=== PATIENT | male | born 1950 | race African-American/Black ===

== ENCOUNTER → 2017-10-25 | Outpatient (CLI) | payer MEDICARE, MEDICAID ==
[~2017-10-25] MED LIST: DIATR MEGLU/DIATRIZOATE SOLN 120ML ONE; HYDR25TA PO; QUIN20TA30 PO; SIMV20TA6 PO
== END | disposition home or self-care (01) ==
LOC: RAD 09:12
PROVIDERS: ATTEND Surgery
DX: K57.30 Diverticulosis of large intestine without perforation or abscess without bleeding (principal); I12.9 Hypertensive chronic kidney disease with stage 1 through stage 4 chronic kidney disease, or unspecified chronic kidney disease; E11.22 Type 2 diabetes mellitus with diabetic chronic kidney disease; N18.9 Chronic kidney disease, unspecified
CPT/HCPCS: 74270; Q9963

== ENCOUNTER 2017-12-18 15:01 | Emergency (ER) | payer MEDICARE, MEDICAID ==
[~2017-12-18] VITALS: Ht 177.8 cm; Wt 78.0 kg
[~2017-12-18 15:01] MED LIST changes: -DIATR MEGLU/DIATRIZOATE SOLN 120ML ONE; +PANT40TA4 PO
[2017-12-18 15:26] VITALS: BP 139/85
[2017-12-18 17:11] LABS: HEMATOCRIT. 41.7 % (42.0-52.0); HEMOGLOBIN. 13.7 g/dL (14.0-18.0); MEAN CORPUSCULAR HEMOGLOBIN 27.1 pg (28.0-32.0); MEAN CORPUSCULAR VOLUME 82.3 fL (80.0-94.0); MEAN PLATELET VOLUME 8.4 fl (7.4-10.4); PLATELET 380 x1000/uL (130-400); RED BLOOD CELL COUNT 5.07 mill/uL (4.7-6.1); RED CELL DISTRIBUTION WIDTH 16.8 % (11.6-14.6)
[2017-12-18 17:13] LABS: CHLORIDE 100 mEq/L (98-107)
[2017-12-18 17:14] LABS: PROTHROMBIN TIME 10.2 sec (9.1-11.1)
[2017-12-18 17:18] LABS: CLARITY URINE CLEAR (CLEAR); COLOR URINE DARK YELLOW (YELLOW); KETONES URINE 1+ (NEGATIVE); LEUKOCYTE ESTERASE URINE NEGATIVE (NEGATIVE); NITRITE URINE NEGATIVE (NEGATIVE); OCCULT BLOOD URINE NEGATIVE (NEGATIVE); PH URINE 5.5 (4.5-8.0); PROTEIN URINE 1+ (NEGATIVE); SPECIFIC GRAVITY URINE 1.028 (1.005-1.030)
[2017-12-18 17:33] LABS: PLATELET ESTIMATE NORMAL
== END 2017-12-18 20:00 | disposition left against medical advice (07) ==
LOC: ER 15:01
DX: R10.33 Periumbilical pain (principal); R11.2 Nausea with vomiting, unspecified
CPT/HCPCS: 36415; 80053; 81003; 83690; 85025; 85610; 99284

== ENCOUNTER 2017-12-19 07:24 | Inpatient (IN) | payer MEDICARE, MEDICAID ==
[~2017-12-19] VITALS: Ht 180.3 cm; Wt 77.1 kg
[2017-12-19] MEDS ORDERED: ONDANSETRON HCL 4MG/2ML INJ IV STA (08:04)
[2017-12-19] MEDS ORDERED: SODIUM CHLORIDE 0.9% 1,000 ML IV ONE (08:04)
[2017-12-19 09:00] LABS: CLARITY URINE CLEAR (CLEAR); COLOR URINE DARK YELLOW (YELLOW); KETONES URINE TRACE (NEGATIVE); LEUKOCYTE ESTERASE URINE NEGATIVE (NEGATIVE); NITRITE URINE NEGATIVE (NEGATIVE); OCCULT BLOOD URINE TRACE (NEGATIVE); PROTEIN URINE 1+ (NEGATIVE); SPECIFIC GRAVITY URINE 1.026 (1.005-1.030)
[2017-12-19 09:04] LABS: CHLORIDE 97 mEq/L (98-107); HEMATOCRIT. 42.2 % (42.0-52.0); HEMOGLOBIN. 13.9 g/dL (14.0-18.0); MEAN CORPUSCULAR HEMOGLOBIN 27.1 pg (28.0-32.0); MEAN CORPUSCULAR VOLUME 82.5 fL (80.0-94.0); MEAN PLATELET VOLUME 8.5 fl (7.4-10.4); PLATELET 400 x1000/uL (130-400); RED BLOOD CELL COUNT 5.12 mill/uL (4.7-6.1); RED CELL DISTRIBUTION WIDTH 16.4 % (11.6-14.6)
[2017-12-19 09:08] LABS: INR 1.1; PROTHROMBIN TIME 10.6 sec (9.1-11.1)
[2017-12-19 09:29] LABS: PLATELET ESTIMATE NORMAL
[2017-12-19] MEDS ORDERED: MORPHINE SULFATE 4 MG/ML CPJ (NOT FOR IM USE) IV ONE (10:15)
[2017-12-19] MEDS ORDERED: IOHEXOL-300 100 ML BOTTLE ONE (10:24)
[2017-12-19] MEDS ORDERED: KETOROLAC 15MG/ML VIAL IV PRN (11:00)
[2017-12-19] MEDS ORDERED: HYDRALAZINE 20MG/ML VIAL IV PRN (11:00)
[2017-12-19] MEDS ORDERED: NITROGLYCERIN 0.4MG TABLET SL SL PRN (11:00)
[2017-12-19] MEDS ORDERED: LORAZEPAM 2MG/ML CPJ IV PRN (11:00)
[2017-12-19] MEDS ORDERED: ONDANSETRON HCL 4MG/2ML INJ IV PRN (11:00)
[2017-12-19] MEDS ORDERED: ACETAMINOPHEN 650MG SUPP PR PRN (11:00)
[2017-12-19] MEDS ORDERED: DIPHENHYDRAMINE 50MG/ML VIAL IV PRN (11:00)
[2017-12-19] MEDS ORDERED: IPRATROPIUM/ALBUTEROL 0.5-3(2.5)MG/3ML NEB INH PRN (11:00)
[2017-12-19 12:20] VITALS: BP 119/75
[2017-12-19 12:35] VITALS: BP 119/75
[2017-12-19] MEDS: ENOXAPARIN 40MG/0.4ML SYR SUBCUT SCH (15:51)
[2017-12-19] MEDS: DEXT 5%/0.45% NACL 1000ML 1,000 ML IV SCH (16:11)
[2017-12-19 20:00] VITALS: BP 144/81
[2017-12-19] MEDS: MORPHINE SULFATE 4 MG/ML CPJ (NOT FOR IM USE) IV PRN (20:48)
[2017-12-20] VITALS: BP 135/78
[2017-12-20] MEDS: MORPHINE SULFATE 4 MG/ML CPJ (NOT FOR IM USE) IV PRN ×2 (01:06→05:53)
[2017-12-20] MEDS: DEXT 5%/0.45% NACL 1000ML 1,000 ML IV SCH ×3 (01:06→12:57)
[2017-12-20 04:00] VITALS: BP 128/75
[2017-12-20 08:00] VITALS: BP 122/81
[2017-12-20] MEDS ORDERED: DIATR MEGLU/DIATRIZOATE SOLN 120ML ONE (08:16)
[2017-12-20 12:00] VITALS: BP 122/83
[2017-12-20] MEDS: ENOXAPARIN 40MG/0.4ML SYR SUBCUT SCH (12:55)
[2017-12-20] MEDS: PANTOPRAZOLE SODIUM 40 MG/VIAL IV SCH (12:55)
[2017-12-20 16:00] VITALS: BP 140/89
[2017-12-20 20:00] VITALS: BP 121/76
[2017-12-21] VITALS: BP 121/73
[2017-12-21 04:00] VITALS: BP 126/76
[2017-12-21] MEDS: DEXT 5%/0.45% NACL 1000ML 1,000 ML IV SCH (06:12)
[2017-12-21 08:00] VITALS: BP 120/75
[2017-12-21] MEDS: PANTOPRAZOLE SODIUM 40 MG/VIAL IV SCH (09:29)
[2017-12-21 12:00] VITALS: BP 115/72
[2017-12-21 16:00] VITALS: BP 147/74
[2017-12-21 20:00] VITALS: BP 134/83
[2017-12-22] VITALS: BP 119/73
[2017-12-22 04:00] VITALS: BP 121/73
[2017-12-22 08:00] VITALS: BP 112/69
[2017-12-22] MEDS ORDERED: FAMOTIDINE 20MG TABLET PO SCH (09:00)
[2017-12-22 12:00] VITALS: BP 112/73
[2017-12-22] MEDS: DEXT 5%/0.45% NACL 1000ML 1,000 ML IV SCH (12:00)
[2017-12-22 12:34] VITALS: BP 112/73
[2017-12-22] MEDS: ENOXAPARIN 40MG/0.4ML SYR SUBCUT SCH (13:00)
== END 2017-12-22 13:20 | disposition home or self-care (01) | DRG 388 ==
LOC: ER 07:24 → 6EST 10:22 → ENRESERV 10:43
PROVIDERS: ADMIT Internal Medicine; ATTEND Internal Medicine
PROC: 0D9670Z Drainage of Stomach with Drainage Device, Via Natural or Artificial Opening (ICD-10-PCS; principal; 2017-12-19)
DX: K56.609 Unspecified intestinal obstruction, unspecified as to partial versus complete obstruction (principal); N17.0 Acute kidney failure with tubular necrosis; D63.8 Anemia in other chronic diseases classified elsewhere; I10 Essential (primary) hypertension; K21.9 Gastro-esophageal reflux disease without esophagitis; E78.5 Hyperlipidemia, unspecified; E78.00 Pure hypercholesterolemia, unspecified; Z93.3 Colostomy status; Z85.048 Personal history of other malignant neoplasm of rectum, rectosigmoid junction, and anus; Z79.899 Other long term (current) drug therapy; Z92.21 Personal history of antineoplastic chemotherapy
CPT/HCPCS: 36415; 71045; 74177; 74250; 80053; 81003; 83690; 85025; 85610; 93970; 96361; 96374; 96375; 97162; 99285; C9113; J1650; J2270; J2405; J7030; Q9963; Q9967

== ENCOUNTER 2018-01-16 06:08 | Inpatient (IN) | payer MEDICARE, MEDICAID ==
[~2018-01-16] VITALS: Ht 167.6 cm; Wt 73.5 kg
[2018-01-16] MEDS ORDERED: SODIUM CHLORIDE 0.9% 1,000 ML IV ONE (07:09)
[2018-01-16] MEDS ORDERED: MORPHINE SULFATE 4 MG/ML CPJ (NOT FOR IM USE) IV STA (07:09)
[2018-01-16] MEDS ORDERED: ONDANSETRON HCL 4MG/2ML INJ IV STA (07:09)
[2018-01-16 08:25] LABS: HEMATOCRIT. 35.2 % (42.0-52.0); HEMOGLOBIN. 11.7 g/dL (14.0-18.0); MEAN CORPUSCULAR VOLUME 81.4 fL (80.0-94.0); MEAN PLATELET VOLUME 8.2 fl (7.4-10.4); PLATELET 374 x1000/uL (130-400); RED BLOOD CELL COUNT 4.33 mill/uL (4.7-6.1); RED CELL DISTRIBUTION WIDTH 16.4 % (11.6-14.6)
[2018-01-16 08:33] LABS: CHLORIDE 96 mEq/L (98-107)
[2018-01-16] MEDS ORDERED: POTASSIUM CHLORIDE 20MEQ TABLET SR PO ONE (08:45)
[2018-01-16] MEDS ORDERED: KCL 20MEQ/100ML PREMIX 100 ML IV ONE (09:00)
[2018-01-16 09:44] LABS: PLATELET ESTIMATE NORMAL
[2018-01-16] MEDS ORDERED: PIPERACILLIN/TAZOBACTAM 3.375GM/50ML PREMIX IV ONE (11:45)
[2018-01-16] MEDS ORDERED: PIPERACILLIN/TAZ 3.375G PREMIX 50 ML IV ONE (12:00)
[2018-01-16] MEDS ORDERED: ONDANSETRON HCL 4MG/2ML INJ IV ONE (12:45)
[2018-01-16] MEDS ORDERED: MORPHINE SULFATE 4 MG/ML CPJ (NOT FOR IM USE) IV ONE (12:45)
[2018-01-16] MEDS ORDERED: IPRATROPIUM/ALBUTEROL 0.5-3(2.5)MG/3ML NEB INH PRN (13:15)
[2018-01-16] MEDS ORDERED: DIPHENHYDRAMINE 50MG/ML VIAL IV PRN (13:15)
[2018-01-16] MEDS ORDERED: ACETAMINOPHEN 650MG SUPP PR PRN (13:15)
[2018-01-16] MEDS ORDERED: NITROGLYCERIN 0.4MG TABLET SL SL PRN (13:15)
[2018-01-16] MEDS ORDERED: LORAZEPAM 2MG/ML CPJ IV PRN (13:15)
[2018-01-16 17:55] VITALS: BP 120/67
[2018-01-16] MEDS ORDERED: NA PHOS,M-B/NA PHOS,DI-BA ENEMA 118ML PR PRN (19:00)
[2018-01-16 20:00] VITALS: BP 136/83
[2018-01-16 20:16] VITALS: BP 136/83
[2018-01-16] MEDS ORDERED: CEFTRIAXONE 1 G PREMIX 50 ML IV SCH (20:30)
[2018-01-16] MEDS: DEXT 5%/LACTATED RINGERS 1,000 ML IV SCH ×2 (21:09→22:24)
[2018-01-16] MEDS: ENOXAPARIN 40MG/0.4ML SYR SUBCUT SCH (21:14)
[2018-01-16] MEDS ORDERED: AZITHROMYCIN 500 MG in DEXT 5% WATER 250 ML IV SCH (21:30)
[2018-01-16] MEDS ORDERED: KCL 20MEQ/100ML PREMIX 100 ML IV NR (22:00)
[2018-01-16] MEDS: MORPHINE SULFATE 4 MG/ML CPJ (NOT FOR IM USE) IV PRN (22:13)
[2018-01-16] MEDS: ONDANSETRON HCL 4MG/2ML INJ IV PRN (22:14)
[2018-01-17] VITALS: BP 129/81
[2018-01-17 04:00] VITALS: BP 121/73
[2018-01-17 05:28] LABS: *AMPHETAMINES SCREEN URINE NEGATIVE (NEGATIVE); *BARBITURATES SCREEN URINE NEGATIVE (NEGATIVE)
[2018-01-17 05:29] LABS: *BENZODIAZEPINES SCREEN URINE NEGATIVE (NEGATIVE); *COCAINE SCREEN URINE NEGATIVE (NEGATIVE); CANNABINOID URINE SCREEN NEGATIVE (NEGATIVE); METHADONE URINE SCREEN NEGATIVE (NEGATIVE); OPIATES URINE SCREEN PRESUMTIVE POSITIVE (NEGATIVE); PHENCYCLIDINE URINE SCREEN NEGATIVE (NEGATIVE)
[2018-01-17 08:00] VITALS: BP 109/73
[2018-01-17 08:20] LABS: HEMATOCRIT. 30.7 % (42.0-52.0); HEMOGLOBIN. 10.1 g/dL (14.0-18.0); MEAN CORPUSCULAR HEMOGLOBIN 26.8 pg (28.0-32.0); MEAN CORPUSCULAR VOLUME 81.7 fL (80.0-94.0); MEAN PLATELET VOLUME 7.9 fl (7.4-10.4); PLATELET 301 x1000/uL (130-400); RED BLOOD CELL COUNT 3.76 mill/uL (4.7-6.1); RED CELL DISTRIBUTION WIDTH 16.4 % (11.6-14.6)
[2018-01-17] MEDS: DEXT 5%/LACTATED RINGERS 1,000 ML IV SCH ×2 (08:20→21:40)
[2018-01-17] MEDS: PANTOPRAZOLE SODIUM 40 MG/VIAL IV SCH (09:00)
[2018-01-17 10:08] LABS: CHLORIDE 104 mEq/L (98-107)
[2018-01-17 10:11] LABS: COLOR URINE YELLOW (YELLOW); KETONES URINE TRACE (NEGATIVE); LEUKOCYTE ESTERASE URINE NEGATIVE (NEGATIVE); NITRITE URINE NEGATIVE (NEGATIVE); OCCULT BLOOD URINE NEGATIVE (NEGATIVE); PH URINE 5.5 (4.5-8.0); PROTEIN URINE NEGATIVE (NEGATIVE); SPECIFIC GRAVITY URINE 1.018 (1.005-1.030); UROBILINOGEN URINE 0.2 E.U./dL (0.2-1.0)
[2018-01-17 10:17] LABS: CLARITY URINE TURBID (CLEAR)
[2018-01-17 10:59] LABS: PLATELET ESTIMATE NORMAL
[2018-01-17] MEDS: MORPHINE SULFATE 4 MG/ML CPJ (NOT FOR IM USE) IV PRN ×3 (11:09→21:00)
[2018-01-17] MEDS ORDERED: POTASSIUM CHLORIDE 20MEQ TABLET SR PO ONE (11:30)
[2018-01-17] MEDS ORDERED: DIATR MEGLU/DIATRIZOATE SOLN 120ML ONE (11:44)
[2018-01-17] MEDS ORDERED: POTASSIUM CHLORIDE INJ 40 MEQ in DEXT 5% WATER 500 ML IV NR (13:00)
[2018-01-17 16:00] VITALS: BP 128/83
[2018-01-17 20:00] VITALS: BP 126/81
[2018-01-17] MEDS ORDERED: CEFTRIAXONE 1 G PREMIX 50 ML IV SCH (20:00)
[2018-01-17] MEDS: ONDANSETRON HCL 4MG/2ML INJ IV PRN (20:59)
[2018-01-17] MEDS ORDERED: AZITHROMYCIN 500 MG in DEXT 5% WATER 250 ML IV SCH (21:00)
[2018-01-17] MEDS: ENOXAPARIN 40MG/0.4ML SYR SUBCUT SCH (21:02)
[2018-01-18] VITALS: BP 124/79
[2018-01-18] MEDS: MORPHINE SULFATE 4 MG/ML CPJ (NOT FOR IM USE) IV PRN (01:17)
[2018-01-18 04:00] VITALS: BP 125/75
[2018-01-18 08:00] VITALS: BP 122/74
[2018-01-18] MEDS: PANTOPRAZOLE SODIUM 40 MG/VIAL IV SCH (08:10)
[2018-01-18] MEDS: DEXT 5%/LACTATED RINGERS 1,000 ML IV SCH (10:27)
[2018-01-18 11:45] VITALS: BP 104/73
== END 2018-01-18 12:24 | disposition home or self-care (01) | DRG 389 ==
LOC: ER 07:23 → EDBEDREQ 12:43 → CANRESERV 12:58 → ENRESERV 12:58 → 6EST 17:55
PROVIDERS: ADMIT Internal Medicine; ATTEND Internal Medicine
DX: K56.699 Other intestinal obstruction unspecified as to partial versus complete obstruction (principal); E44.1 Mild protein-calorie malnutrition; N17.9 Acute kidney failure, unspecified; D63.8 Anemia in other chronic diseases classified elsewhere; E78.5 Hyperlipidemia, unspecified; E87.6 Hypokalemia; J44.9 Chronic obstructive pulmonary disease, unspecified; K76.89 Other specified diseases of liver; I10 Essential (primary) hypertension; K21.9 Gastro-esophageal reflux disease without esophagitis; E78.00 Pure hypercholesterolemia, unspecified; E87.5 Hyperkalemia; N40.0 Benign prostatic hyperplasia without lower urinary tract symptoms; Z90.49 Acquired absence of other specified parts of digestive tract; Z85.048 Personal history of other malignant neoplasm of rectum, rectosigmoid junction, and anus; Z93.3 Colostomy status; Z68.26 Body mass index [BMI] 26.0-26.9, adult; Z92.21 Personal history of antineoplastic chemotherapy
CPT/HCPCS: 36415; 71045; 74018; 74176; 74250; 80061; 80305; 83036; 93970; 96365; 96367; 96375; 99285; C9113; J0456; J0696; J1650; J2060; J2270; J2405; J2543; J3480; J7030; J7060; Q9963

== ENCOUNTER 2018-02-23 07:11 | Inpatient (IN) | payer MEDICARE, MEDICAID ==
[~2018-02-23] VITALS: Ht 177.8 cm; Wt 78.5 kg
[2018-02-23] MEDS ORDERED: MORPHINE SULFATE 4 MG/ML CPJ (NOT FOR IM USE) IV STA (08:16)
[2018-02-23 09:22] LABS: BASOPHILS % 0.6 % (0.0-2.0); EOSINOPHILS % 1.9 % (0.0-5.0); HEMATOCRIT. 37.4 % (42.0-52.0); HEMOGLOBIN. 12.3 g/dL (14.0-18.0); LYMPHOCYTES % 13.3 % (20.0-50.0); MEAN CORPUSCULAR HEMOGLOBIN 27.4 pg (28.0-32.0); MEAN CORPUSCULAR VOLUME 83.2 fL (80.0-94.0); MEAN PLATELET VOLUME 7.5 fl (7.4-10.4); MONOCYTES % 6.5 % (2.0-8.0); NEUTROPHILS % 77.7 % (40.0-76.0); PLATELET 391 x1000/uL (130-400); RED CELL DISTRIBUTION WIDTH 18.7 % (11.6-14.6)
[2018-02-23 09:37] LABS: CHLORIDE 103 mEq/L (98-107)
[2018-02-23 09:44] LABS: PROTHROMBIN TIME 10.1 sec (9.1-11.1)
[2018-02-23] MEDS ORDERED: MORPHINE SULFATE 4 MG/ML CPJ (NOT FOR IM USE) IV ONE (10:15)
[2018-02-23 10:53] LABS: CLARITY URINE CLEAR (CLEAR); COLOR URINE YELLOW (YELLOW); KETONES URINE NEGATIVE (NEGATIVE); LEUKOCYTE ESTERASE URINE NEGATIVE (NEGATIVE); NITRITE URINE NEGATIVE (NEGATIVE); OCCULT BLOOD URINE NEGATIVE (NEGATIVE); PH URINE 6.5 (4.5-8.0); PROTEIN URINE NEGATIVE (NEGATIVE); SPECIFIC GRAVITY URINE 1.015 (1.005-1.030); UROBILINOGEN URINE 0.2 E.U./dL (0.2-1.0)
[2018-02-23] MEDS ORDERED: IPRATROPIUM/ALBUTEROL 0.5-3(2.5)MG/3ML NEB INH PRN (12:15)
[2018-02-23] MEDS ORDERED: NITROGLYCERIN 0.4MG TABLET SL SL PRN (12:15)
[2018-02-23] MEDS ORDERED: ACETAMINOPHEN 650MG SUPP PR PRN (12:15)
[2018-02-23] MEDS ORDERED: DIPHENHYDRAMINE 50MG/ML VIAL IV PRN (12:15)
[2018-02-23 12:30] VITALS: BP 144/83
[2018-02-23] MEDS: ENOXAPARIN 40MG/0.4ML SYR SUBCUT SCH (14:48)
[2018-02-23] MEDS: DEXT 5%/LACTATED RINGERS 1,000 ML IV SCH (14:48)
[2018-02-23] MEDS: MORPHINE SULFATE 4 MG/ML CPJ (NOT FOR IM USE) IV PRN ×2 (14:49→18:44)
[2018-02-23 16:00] VITALS: BP 148/88
[2018-02-23] MEDS: ONDANSETRON HCL 4MG/2ML INJ IV PRN (17:22)
[2018-02-23] MEDS ORDERED: LOSA50TA20 MT (17:34)
[2018-02-23] MEDS ORDERED: HYDRALAZINE 10 MG in SODIUM CHLORIDE 0.9% 49.5 ML IV PRN (18:30)
[2018-02-23] MEDS ORDERED: HYDRALAZINE 20MG/ML VIAL IV PRN (18:30)
[2018-02-24] MEDS: MORPHINE SULFATE 4 MG/ML CPJ (NOT FOR IM USE) IV PRN ×5 (03:05→22:21)
[2018-02-24 08:00] VITALS: BP 144/98
[2018-02-24] MEDS: PANTOPRAZOLE SODIUM 40 MG/VIAL IV SCH (09:06)
[2018-02-24] MEDS: DEXT 5%/LACTATED RINGERS 1,000 ML IV SCH ×2 (09:10→14:49)
[2018-02-24] MEDS: ENOXAPARIN 40MG/0.4ML SYR SUBCUT SCH (14:48)
[2018-02-24 16:00] VITALS: BP 142/93
[2018-02-24] MEDS: ONDANSETRON HCL 4MG/2ML INJ IV PRN (19:50)
[2018-02-24 20:00] VITALS: BP 145/94
[2018-02-24 22:15] VITALS: BP 142/96
[2018-02-25 02:00] VITALS: BP 147/91
[2018-02-25] MEDS: MORPHINE SULFATE 4 MG/ML CPJ (NOT FOR IM USE) IV PRN ×5 (02:29→21:03)
[2018-02-25] MEDS: DEXT 5%/LACTATED RINGERS 1,000 ML IV SCH (02:32)
[2018-02-25 04:00] VITALS: BP 148/93
[2018-02-25 08:00] VITALS: BP 146/95
[2018-02-25] MEDS: PANTOPRAZOLE SODIUM 40 MG/VIAL IV SCH (08:09)
[2018-02-25 12:08] VITALS: BP 143/84
[2018-02-25] MEDS ORDERED: DIATR MEGLU/DIATRIZOATE SOLN 120ML ONE (13:43)
[2018-02-25] MEDS: ENOXAPARIN 40MG/0.4ML SYR SUBCUT SCH (15:13)
[2018-02-25 16:14] VITALS: BP 140/85
[2018-02-25 20:00] VITALS: BP 142/89
[2018-02-26] VITALS: BP 146/85
[2018-02-26 04:00] VITALS: BP 144/87
[2018-02-26] MEDS: MORPHINE SULFATE 4 MG/ML CPJ (NOT FOR IM USE) IV PRN ×3 (04:18→21:23)
[2018-02-26] MEDS: DEXT 5%/LACTATED RINGERS 1,000 ML IV SCH (04:19)
[2018-02-26 08:00] VITALS: BP 142/85
[2018-02-26] MEDS ORDERED: DIATR MEGLU/DIATRIZOATE SOLN 120ML ONE (09:30)
[2018-02-26] MEDS: FAMOTIDINE 20MG/2ML VIAL IV SCH ×2 (11:26→20:57)
[2018-02-26 12:00] VITALS: BP 157/95
[2018-02-26] MEDS: ENOXAPARIN 40MG/0.4ML SYR SUBCUT SCH (13:43)
[2018-02-26 16:00] VITALS: BP 142/87
[2018-02-26 20:00] VITALS: BP 140/79
[2018-02-27] MEDS: DEXT 5%/LACTATED RINGERS 1,000 ML IV SCH ×2 (00:08→14:22)
[2018-02-27 01:53] VITALS: BP 139/78
[2018-02-27 04:00] VITALS: BP 124/70
[2018-02-27 08:00] VITALS: BP 122/65
[2018-02-27] MEDS: FAMOTIDINE 20MG/2ML VIAL IV SCH ×2 (08:47→20:21)
[2018-02-27 12:00] VITALS: BP 129/68
[2018-02-27] MEDS: ENOXAPARIN 40MG/0.4ML SYR SUBCUT SCH (14:22)
[2018-02-27] MEDS: MORPHINE SULFATE 4 MG/ML CPJ (NOT FOR IM USE) IV PRN ×2 (14:23→20:40)
[2018-02-27 16:30] VITALS: BP 131/78
[2018-02-27 20:00] VITALS: BP 120/68
[2018-02-28] VITALS: BP 115/65
[2018-02-28 04:00] VITALS: BP 151/82
[2018-02-28] MEDS: DEXT 5%/LACTATED RINGERS 1,000 ML IV SCH (05:51)
[2018-02-28 08:00] VITALS: BP 139/80
[2018-02-28] MEDS: FAMOTIDINE 20MG/2ML VIAL IV SCH (08:19)
[2018-02-28] MEDS: MORPHINE SULFATE 4 MG/ML CPJ (NOT FOR IM USE) IV PRN (08:29)
[2018-02-28 12:00] VITALS: BP 139/81
[2018-02-28] MEDS: ENOXAPARIN 40MG/0.4ML SYR SUBCUT SCH (14:36)
[2018-02-28 14:52] VITALS: BP 136/76
[2018-02-28 16:00] VITALS: BP 132/75
== END 2018-02-28 19:45 | disposition home health service (06) | DRG 389 ==
LOC: ER 07:11 → 8WST 10:31 → EDBEDREQ 10:31 → ENRESERV 11:09
PROVIDERS: ADMIT Internal Medicine; ATTEND Internal Medicine
PROC: 0D9670Z Drainage of Stomach with Drainage Device, Via Natural or Artificial Opening (ICD-10-PCS; principal; 2018-02-23)
DX: K56.600 Partial intestinal obstruction, unspecified as to cause (principal); E44.1 Mild protein-calorie malnutrition; I10 Essential (primary) hypertension; E78.00 Pure hypercholesterolemia, unspecified; D63.8 Anemia in other chronic diseases classified elsewhere; Z90.49 Acquired absence of other specified parts of digestive tract; Z93.3 Colostomy status; Z85.048 Personal history of other malignant neoplasm of rectum, rectosigmoid junction, and anus; Z68.24 Body mass index [BMI] 24.0-24.9, adult
CPT/HCPCS: 36415; 71045; 74018; 74176; 74250; 93005; 96374; 96375; 97162; 97165; 99285; C1893; C9113; J1650; J2270; J2405; J3490; J7030; Q9963

== ENCOUNTER 2018-05-02 05:37 | Inpatient (IN) | payer MEDICARE, MEDICAID ==
[~2018-05-02] VITALS: Ht 180.3 cm; Wt 73.3 kg
[2018-05-02] VITALS (35 sets, daily range): BP systolic 0–187; BP diastolic 0–131
[~2018-05-02 05:37] MED LIST changes: +LOSA50TA20 MT; -QUIN20TA30 PO; -SIMV20TA6 PO
[2018-05-02] MEDS ORDERED: ONDANSETRON HCL 4MG/2ML INJ IV PRN (06:00)
[2018-05-02] MEDS ORDERED: CHOL200059 PO (06:55)
[2018-05-02] MEDS ORDERED: HYDR-4009 PO (06:55)
[2018-05-02] MEDS ORDERED: BACITRACIN 50,000 UNITS/VIAL ONE ×4 (07:00→09:51)
[2018-05-02] MEDS ORDERED: NORMAL SALINE 0.9% 10 ML SYR ONE ×3 (07:00→09:19)
[2018-05-02] MEDS ORDERED: BUPIVACAINE HCL 0.5% (5MG/ML) 50ML ONE (07:01)
[2018-05-02] MEDS: LACTATED RINGERS 1,000 ML IV SCH (07:06)
[2018-05-02] MEDS ORDERED: DOBUTAMINE 250MG PREMIX 0 ML IV ONE (10:53)
[2018-05-02] MEDS ORDERED: DOPAMINE 400MG/250ML PREMIX 250 ML IV ONE (10:55)
[2018-05-02] MEDS ORDERED: MORPHINE SULFATE 4 MG/ML CPJ (NOT FOR IM USE) IV PRN (11:00)
[2018-05-02 11:05] LABS: HEMATOCRIT 34.7 % (42.0-52.0); HEMOGLOBIN 11.5 g/dL (14.0-18.0); MEAN CORPUSCULAR HEMOGLOBIN 28.2 pg (28.0-32.0); MEAN CORPUSCULAR VOLUME 85.5 fL (80.0-94.0); PLATELET 244 x1000/uL (130-400); RED BLOOD CELL COUNT 4.06 mill/uL (4.7-6.1); RED CELL DISTRIBUTION WIDTH 17.5 % (11.6-14.6)
[2018-05-02 11:06] LABS: INR 1.5; PARTIAL THROMBOPLASTIN TIME 26.8 sec (23.4-31.0); PROTHROMBIN TIME 14.6 sec (9.1-11.1)
[2018-05-02] MEDS ORDERED: NOREPINEPHRINE 4 MG in DEXTROSE 5% WATER 250 ML IV PRN (11:30)
[2018-05-02 12:29] LABS: CHLORIDE 110 mEq/L (98-107)
[2018-05-02 12:30] LABS: BG BASE EXCESS -5.7 mmol/L (-2.0-2.0); BG CARBOXYHEMOGLOBIN 0.9 % (0.5-1.5); BG DEOXYHEMOGLOBIN 0.3 % (0.0-5.0); BG FRACTION INSPIRED OXYGEN 100; BG HCO3 ACT 17.1 mmol/L (22.0-26.0); BG METHEMOGLOBIN 0.3 % (0.0-1.5); BG OXYGEN SATURATION 99.7 % (92.0-98.5); BG OXYHEMOGLOBIN 98.5 % (94.0-97.0); BG PCO2 26.7 mmHg (35.0-45.0); BG PH 7.424 (7.350-7.450); BG PO2 593.4 mmHg (75.0-100.0); BG SAMPLE SITE A-LINE; BG TIDAL VOLUME(mL) 600 mL; BG TOTAL HEMOGLOBIN 13.7 g/dL (12.0-18.0); BG VENT MODE VENT - A/C; BG VENT RATE 12 set
[2018-05-02] MEDS ORDERED: DEXT 5%/0.9% NACL KCL 20MEQ/L 1,000 ML IV SCH (13:30)
[2018-05-02] MEDS ORDERED: FENTANYL CITRATE/PF 50MCG/ML 2ML VIAL IV NR (13:45)
[2018-05-02] MEDS ORDERED: FENTANYL CITRATE/PF 50MCG/ML 2ML VIAL IV PRN (13:45)
[2018-05-02] MEDS ORDERED: MIDAZOLAM HCL 2 MG/2 ML VIAL IV NR (13:45)
[2018-05-02] MEDS ORDERED: LACTATED RINGERS 1,000 ML IV ONE (14:30)
[2018-05-02 15:20] LABS: CHLORIDE 107 mEq/L (98-107)
[2018-05-02 15:23] LABS: BG BASE EXCESS -8.2 mmol/L (-2.0-2.0); BG CARBOXYHEMOGLOBIN 0.5 % (0.5-1.5); BG DEOXYHEMOGLOBIN 0.8 % (0.0-5.0); BG FRACTION INSPIRED OXYGEN 50; BG HCO3 ACT 16.7 mmol/L (22.0-26.0); BG METHEMOGLOBIN 0.3 % (0.0-1.5); BG OXYGEN SATURATION 99.2 % (92.0-98.5); BG OXYHEMOGLOBIN 98.4 % (94.0-97.0); BG PCO2 33.2 mmHg (35.0-45.0); BG PO2 310.1 mmHg (75.0-100.0); BG SAMPLE SITE A-LINE; BG TIDAL VOLUME(mL) 600 mL; BG TOTAL HEMOGLOBIN 15.1 g/dL (12.0-18.0); BG VENT MODE VENT - A/C; BG VENT RATE 12 set
[2018-05-02] MEDS ORDERED: SODIUM CHLORIDE 0.9% 500 ML IV ONE (19:00)
[2018-05-02] MEDS ORDERED: DEXT 5%/0.45% NACL KCL 20MEQ/L 1,000 ML IV SCH (19:00)
[2018-05-02] MEDS ORDERED: POTASSIUM CHLORIDE INJ 40 MEQ in DEXT 5% WATER 250 ML IV NR (19:00)
[2018-05-02] MEDS ORDERED: METOPROLOL TARTRATE 5MG/5ML VIAL IV SCH (19:15)
[2018-05-02] MEDS ORDERED: PROPOFOL 10MG/ML 100ML 100 ML IV PRN (19:30)
[2018-05-02] MEDS ORDERED: ACETAMINOPHEN 650MG SUPP PR PRN (20:00)
[2018-05-02] MEDS ORDERED: ALBUMIN HUMAN 25GM/500ML (5%) IV SCH (20:00)
[2018-05-02 20:39] LABS: BG CARBOXYHEMOGLOBIN 0.5 % (0.5-1.5); BG DEOXYHEMOGLOBIN 73.5 % (0.0-5.0); BG FRACTION INSPIRED OXYGEN 50; BG HCO3 ACT 13.6 mmol/L (22.0-26.0); BG METHEMOGLOBIN 0.9 % (0.0-1.5); BG OXYGEN SATURATION 25.5 % (92.0-98.5); BG OXYHEMOGLOBIN 25.1 % (94.0-97.0); BG PCO2 56.8 mmHg (35.0-45.0); BG PEEP (cmH2O) 0 cmH2O; BG PH 6.996 (7.350-7.450); BG PO2 < 30.3 mmHg (75.0-100.0); BG SAMPLE SITE LEFT FEMORAL; BG TIDAL VOLUME(mL) 550 mL; BG TOTAL HEMOGLOBIN 13.9 g/dL (12.0-18.0); BG VENT MODE VENT - A/C; BG VENT RATE 12 set
[2018-05-02 20:43] LABS: CHLORIDE 108 mEq/L (98-107)
[2018-05-02] MEDS ORDERED: ALBUMIN HUMAN 25GM/500ML (5%) IV NR (20:45)
[2018-05-02 20:49] LABS: PHOSPHORUS 4.8 mg/dL (2.5-4.9)
[2018-05-02] MEDS ORDERED: NOREPINEPHRINE 4 MG in DEXT 5% WATER 246 ML IV PRN (20:52)
[2018-05-02] MEDS ORDERED: PHENYLEPHRINE 40 MG in DEXT 5% WATER 246 ML IV PRN (21:00)
[2018-05-02 21:01] LABS: HEMATOCRIT. 34.8 % (42.0-52.0); HEMOGLOBIN. 11.5 g/dL (14.0-18.0); MEAN CORPUSCULAR HEMOGLOBIN 28.5 pg (28.0-32.0); MEAN CORPUSCULAR VOLUME 86.2 fL (80.0-94.0); MEAN PLATELET VOLUME 8.1 fl (7.4-10.4); PLATELET 173 x1000/uL (130-400); RED BLOOD CELL COUNT 4.04 mill/uL (4.7-6.1)
[2018-05-02] MEDS: FAMOTIDINE 20MG/2ML VIAL IV SCH (21:29)
[2018-05-02] MEDS: METRONIDAZOLE 500 MG PREMIX 100 ML IV SCH (21:29)
[2018-05-02] MEDS ORDERED: SODIUM BICARBONATE 8.4% 1 MEQ/ML 50ML SYR IV NR ×2 (21:30→22:15)
[2018-05-02 21:34] LABS: PLATELET ESTIMATE NORMAL
[2018-05-02] MEDS: PHENYLEPHRINE 80 MG in DEXT 5% WATER 492 ML IV PRN (21:57)
[2018-05-02 22:00] LABS: BG BASE EXCESS -12.4 mmol/L (-2.0-2.0); BG CARBOXYHEMOGLOBIN 0.3 % (0.5-1.5); BG DEOXYHEMOGLOBIN 5.6 % (0.0-5.0); BG FRACTION INSPIRED OXYGEN 100; BG HCO3 ACT 13.1 mmol/L (22.0-26.0); BG METHEMOGLOBIN 0.3 % (0.0-1.5); BG OXYGEN SATURATION 94.4 % (92.0-98.5); BG OXYHEMOGLOBIN 93.8 % (94.0-97.0); BG PCO2 28.7 mmHg (35.0-45.0); BG PEEP (cmH2O) 0 cmH2O; BG PH 7.277 (7.350-7.450); BG PO2 84.4 mmHg (75.0-100.0); BG SAMPLE SITE A-LINE; BG TIDAL VOLUME(mL) 550 mL; BG TOTAL HEMOGLOBIN 10.8 g/dL (12.0-18.0); BG VENT MODE VENT - A/C; BG VENT RATE 24 set
[2018-05-02] MEDS: NOREPINEPHRINE 32 MG in DEXT 5% WATER 468 ML IV PRN ×2 (22:55→23:00)
[2018-05-02] MEDS ORDERED: SODIUM BICARBONATE 100 MEQ in SODIUM CHLORIDE 0.45% 1,000 ML IV SCH (23:30)
[2018-05-03] VITALS (104 sets, daily range): BP systolic 52–173; BP diastolic 24–103
[2018-05-03] MEDS: LACTATED RINGERS 1,000 ML IV SCH (01:42)
[2018-05-03] MEDS: METRONIDAZOLE 500 MG PREMIX 100 ML IV SCH ×3 (05:59→21:31)
[2018-05-03] MEDS ORDERED: LEVOFLOXACIN 500MG PREMIX 100 ML IV SCH (06:00)
[2018-05-03] MEDS ORDERED: IPRATROPIUM/ALBUTEROL 0.5-3(2.5)MG/3ML NEB HHN SCH (06:00)
[2018-05-03] MEDS ORDERED: IPRATROPIUM/ALBUTEROL 0.5-3(2.5)MG/3ML NEB ONE (06:05)
[2018-05-03 06:12] LABS: HEMOGLOBIN. 10.8 g/dL (14.0-18.0); MEAN CORPUSCULAR HEMOGLOBIN 28.3 pg (28.0-32.0); MEAN CORPUSCULAR VOLUME 83.4 fL (80.0-94.0); MEAN PLATELET VOLUME 8.1 fl (7.4-10.4); PLATELET 147 x1000/uL (130-400); RED BLOOD CELL COUNT 3.84 mill/uL (4.7-6.1); RED CELL DISTRIBUTION WIDTH 18.2 % (11.6-14.6)
[2018-05-03 06:16] LABS: CHLORIDE 108 mEq/L (98-107)
[2018-05-03 06:23] LABS: PHOSPHORUS 2.4 mg/dL (2.5-4.9)
[2018-05-03] MEDS: MORPHINE SULFATE 4 MG/ML CPJ (NOT FOR IM USE) IV PRN (06:27)
[2018-05-03 07:41] LABS: INR 1.7; PROTHROMBIN TIME 16.6 sec (9.1-11.1)
[2018-05-03 08:35] LABS: PLATELET ESTIMATE NORMAL
[2018-05-03 08:51] LABS: BG CARBOXYHEMOGLOBIN 0.1 % (0.5-1.5); BG DEOXYHEMOGLOBIN 13.4 % (0.0-5.0); BG FRACTION INSPIRED OXYGEN 100; BG HCO3 ACT 22.8 mmol/L (22.0-26.0); BG METHEMOGLOBIN 0.3 % (0.0-1.5); BG OXYGEN SATURATION 86.5 % (92.0-98.5); BG OXYHEMOGLOBIN 86.2 % (94.0-97.0); BG PCO2 38.9 mmHg (35.0-45.0); BG PH 7.385 (7.350-7.450); BG PO2 52.5 mmHg (75.0-100.0); BG SAMPLE SITE A-LINE; BG TIDAL VOLUME(mL) 550 mL; BG TOTAL HEMOGLOBIN 12.5 g/dL (12.0-18.0); BG VENT MODE VENT - A/C; BG VENT RATE 24 set
[2018-05-03] MEDS: IPRATROPIUM BROMIDE (0.02%) 0.5MG/2.5ML NEB HHN SCH ×4 (08:55→20:25)
[2018-05-03] MEDS ORDERED: PROPOFOL 10MG/ML 100ML 100 ML IV PRN (09:00)
[2018-05-03] MEDS ORDERED: MAGNESIUM 2 G PREMIX 50 ML IV NR (10:00)
[2018-05-03] MEDS ORDERED: VASOPRESSIN 10 UNIT in SODIUM CHLORIDE 0.9% 99.5 ML IV PRN (10:30)
[2018-05-03 10:41] LABS: BG BASE EXCESS -1.2 mmol/L (-2.0-2.0); BG CARBOXYHEMOGLOBIN 0.3 % (0.5-1.5); BG DEOXYHEMOGLOBIN 1.4 % (0.0-5.0); BG FRACTION INSPIRED OXYGEN 100; BG HCO3 ACT 22.5 mmol/L (22.0-26.0); BG METHEMOGLOBIN 0.3 % (0.0-1.5); BG OXYGEN SATURATION 98.6 % (92.0-98.5); BG PCO2 34.3 mmHg (35.0-45.0); BG PH 7.435 (7.350-7.450); BG PO2 150.1 mmHg (75.0-100.0); BG SAMPLE SITE A-LINE; BG TIDAL VOLUME(mL) 550 mL; BG TOTAL HEMOGLOBIN 11.9 g/dL (12.0-18.0); BG VENT MODE VENT - A/C; BG VENT RATE 24 set
[2018-05-03] MEDS: FAMOTIDINE 20MG/2ML VIAL IV SCH ×2 (10:42→21:32)
[2018-05-03] MEDS: CEFEPIME 1,000 MG in DEXTROSE 5% WATER 50 ML IV SCH ×2 (10:42→22:36)
[2018-05-03] MEDS: SODIUM BICARBONATE 100 MEQ in DEXTROSE 5% WATER 1,000 ML IV SCH ×2 (10:43→21:32)
[2018-05-03] MEDS: PHENYLEPHRINE 80 MG in DEXT 5% WATER 492 ML IV PRN ×2 (10:45→18:17)
[2018-05-03] MEDS ORDERED: MAGNESIUM 2 G PREMIX 50 ML IV ONE (10:45)
[2018-05-03] MEDS ORDERED: VANCOMYCIN 1500MG in DEXTROSE 5% WATER 250ML IV NR (11:00)
[2018-05-03] MEDS ORDERED: ALBUMIN HUMAN 25GM/100ML (25%) IV NR ×2 (11:15→16:00)
[2018-05-03 12:02] LABS: CREATINE KINASE MB FRACTION 11.7 ng/mL (0.5-3.6)
[2018-05-03] MEDS ORDERED: SODIUM BICARBONATE 8.4% 10MEQ/10ML SYR IV ONE (14:57)
[2018-05-03] MEDS ORDERED: EPINEPHRINE 0.1MG/ML (1:10,000) 10ML SYR ONE (14:57)
[2018-05-03 17:42] LABS: *BARBITURATES SCREEN URINE NEGATIVE (NEGATIVE); *BENZODIAZEPINES SCREEN URINE PRESUMTIVE POSITIVE (NEGATIVE)
[2018-05-03 17:43] LABS: *COCAINE SCREEN URINE NEGATIVE (NEGATIVE); METHADONE URINE SCREEN NEGATIVE (NEGATIVE); OPIATES URINE SCREEN PRESUMTIVE POSITIVE (NEGATIVE)
[2018-05-03 17:44] LABS: CANNABINOID URINE SCREEN NEGATIVE (NEGATIVE); PHENCYCLIDINE URINE SCREEN NEGATIVE (NEGATIVE)
[2018-05-03 17:54] LABS: *AMPHETAMINES SCREEN URINE NEGATIVE (NEGATIVE)
[2018-05-03] MEDS: NOREPINEPHRINE 32 MG in DEXT 5% WATER 468 ML IV PRN ×2 (18:14→18:20)
[2018-05-03] MEDS: VANCOMYCIN 1 G PREMIX 200 ML IV SCH (21:32)
[2018-05-04] VITALS (91 sets, daily range): BP systolic 72–140; BP diastolic 46–86
[2018-05-04] MEDS: IPRATROPIUM BROMIDE (0.02%) 0.5MG/2.5ML NEB HHN SCH ×6 (00:10→20:10)
[2018-05-04 05:05] LABS: BG BASE EXCESS 4.1 mmol/L (-2.0-2.0); BG CARBOXYHEMOGLOBIN 0.3 % (0.5-1.5); BG DEOXYHEMOGLOBIN 1.1 % (0.0-5.0); BG FRACTION INSPIRED OXYGEN 60; BG HCO3 ACT 24.2 mmol/L (22.0-26.0); BG METHEMOGLOBIN 0.1 % (0.0-1.5); BG OXYGEN SATURATION 98.9 % (92.0-98.5); BG OXYHEMOGLOBIN 98.5 % (94.0-97.0); BG PCO2 23.2 mmHg (35.0-45.0); BG PH 7.636 (7.350-7.450); BG PO2 198.8 mmHg (75.0-100.0); BG SAMPLE SITE A-LINE; BG TIDAL VOLUME(mL) 550 mL; BG TOTAL HEMOGLOBIN 10.8 g/dL (12.0-18.0); BG VENT MODE VENT - A/C; BG VENT RATE 20 set
[2018-05-04] MEDS: METRONIDAZOLE 500 MG PREMIX 100 ML IV SCH ×3 (05:22→21:10)
[2018-05-04 07:42] LABS: HEMATOCRIT. 29.5 % (42.0-52.0); HEMOGLOBIN. 10.1 g/dL (14.0-18.0); MEAN CORPUSCULAR HEMOGLOBIN 28.1 pg (28.0-32.0); MEAN CORPUSCULAR VOLUME 81.8 fL (80.0-94.0); MEAN PLATELET VOLUME 8.3 fl (7.4-10.4); PLATELET 91 x1000/uL (130-400); RED CELL DISTRIBUTION WIDTH 17.7 % (11.6-14.6)
[2018-05-04 07:52] LABS: CHLORIDE 99 mEq/L (98-107)
[2018-05-04 08:06] LABS: CREATINE KINASE 730 IU/L (39-308); PHOSPHORUS 2.2 mg/dL (2.5-4.9)
[2018-05-04 08:09] LABS: CREATINE KINASE MB FRACTION 5.4 ng/mL (0.5-3.6)
[2018-05-04 09:10] LABS: PLATELET ESTIMATE DECREASED
[2018-05-04] MEDS: FAMOTIDINE 20MG/2ML VIAL IV SCH ×2 (09:56→21:09)
[2018-05-04] MEDS: CEFEPIME 1,000 MG in DEXTROSE 5% WATER 50 ML IV SCH ×2 (09:57→22:05)
[2018-05-04] MEDS: VANCOMYCIN 1 G PREMIX 200 ML IV SCH (09:57)
[2018-05-04] MEDS ORDERED: POTASSIUM CHLORIDE INJ 40 MEQ in DEXT 5% WATER 250 ML IV ONE (11:00)
[2018-05-04 11:19] LABS: CLARITY URINE CLEAR (CLEAR); COLOR URINE YELLOW (YELLOW); KETONES URINE NEGATIVE (NEGATIVE); LEUKOCYTE ESTERASE URINE NEGATIVE (NEGATIVE); NITRITE URINE NEGATIVE (NEGATIVE); OCCULT BLOOD URINE 1+ (NEGATIVE); PH URINE 8.5 (4.5-8.0); PROTEIN URINE TRACE (NEGATIVE); SPECIFIC GRAVITY URINE 1.009 (1.005-1.030); UROBILINOGEN URINE 0.2 E.U./dL (0.2-1.0)
[2018-05-04 11:26] LABS: BG BASE EXCESS 4.1 mmol/L (-2.0-2.0); BG CARBOXYHEMOGLOBIN 0.3 % (0.5-1.5); BG DEOXYHEMOGLOBIN 2.1 % (0.0-5.0); BG FRACTION INSPIRED OXYGEN 40; BG HCO3 ACT 26.3 mmol/L (22.0-26.0); BG METHEMOGLOBIN 0.1 % (0.0-1.5); BG OXYGEN SATURATION 97.9 % (92.0-98.5); BG OXYHEMOGLOBIN 97.5 % (94.0-97.0); BG PH 7.547 (7.350-7.450); BG PO2 118.4 mmHg (75.0-100.0); BG PRESSURE SUPPORT 8; BG SAMPLE SITE A-LINE; BG TOTAL HEMOGLOBIN 9.6 g/dL (12.0-18.0); BG VENT MODE VENT - CPAP
[2018-05-04] MEDS ORDERED: RACEPINEPHRINE 2.25% 0.5ML NEB VIAL HHN PRN (12:45)
[2018-05-04] MEDS: PHENYLEPHRINE 80 MG in DEXT 5% WATER 492 ML IV PRN (13:10)
[2018-05-04] MEDS ORDERED: POTASSIUM PHOS,M-BASIC-D-BASIC 30 MMOL in SODIUM CHLORIDE 0.9% 500 ML IV ONE (16:00)
[2018-05-05] VITALS (67 sets, daily range): BP systolic 107–145; BP diastolic 52–92
[2018-05-05] MEDS: IPRATROPIUM BROMIDE (0.02%) 0.5MG/2.5ML NEB HHN SCH ×6 (00:05→20:19)
[2018-05-05] MEDS: METRONIDAZOLE 500 MG PREMIX 100 ML IV SCH ×3 (05:15→21:29)
[2018-05-05 05:48] LABS: HEMATOCRIT. 28.1 % (42.0-52.0); HEMOGLOBIN. 9.6 g/dL (14.0-18.0); MEAN CORPUSCULAR HEMOGLOBIN 28.2 pg (28.0-32.0); MEAN CORPUSCULAR VOLUME 82.7 fL (80.0-94.0); MEAN PLATELET VOLUME 8.6 fl (7.4-10.4); PLATELET 79 x1000/uL (130-400); RED CELL DISTRIBUTION WIDTH 18.1 % (11.6-14.6)
[2018-05-05 06:25] LABS: CHLORIDE 106 mEq/L (98-107)
[2018-05-05 06:38] LABS: CREATINE KINASE 632 IU/L (39-308)
[2018-05-05 06:44] LABS: CREATINE KINASE MB FRACTION 5.9 ng/mL (0.5-3.6)
[2018-05-05] MEDS: KCL 20MEQ/100ML PREMIX 100 ML IV SCH ×3 (07:21→11:50)
[2018-05-05] MEDS: DEXT 5%/0.45% NACL KCL 40MEQ/L 1,000 ML IV SCH ×2 (08:32→16:42)
[2018-05-05] MEDS: CEFEPIME 1,000 MG in DEXTROSE 5% WATER 50 ML IV SCH ×2 (09:43→21:30)
[2018-05-05] MEDS: FAMOTIDINE 20MG/2ML VIAL IV SCH (09:43)
[2018-05-05] MEDS ORDERED: SODIUM CHLORIDE 0.9% 250 ML IV ONE (10:45)
[2018-05-05 10:57] LABS: PLATELET ESTIMATE DECREASED
[2018-05-05] MEDS ORDERED: CALCIUM GLUCONATE 1,000 MG in DEXT 5% WATER 90 ML IV NR (14:00)
[2018-05-05] MEDS: CALCITRIOL 1MCG/ML AMP IV SCH (14:44)
[2018-05-05 17:09] LABS: CHLORIDE 106 mEq/L (98-107)
[2018-05-05] MEDS ORDERED: KCL 20MEQ/100ML PREMIX 100 ML IV NR (19:30)
[2018-05-06] VITALS (23 sets, daily range): BP systolic 121–157; BP diastolic 71–90
[2018-05-06] MEDS: IPRATROPIUM BROMIDE (0.02%) 0.5MG/2.5ML NEB HHN SCH ×6 (01:11→19:53)
[2018-05-06] MEDS: DEXT 5%/0.45% NACL KCL 40MEQ/L 1,000 ML IV SCH ×2 (03:11→13:25)
[2018-05-06 05:29] LABS: HEMATOCRIT. 29.1 % (42.0-52.0); HEMOGLOBIN. 9.7 g/dL (14.0-18.0); MEAN CORPUSCULAR HEMOGLOBIN 27.8 pg (28.0-32.0); MEAN CORPUSCULAR VOLUME 83.2 fL (80.0-94.0); MEAN PLATELET VOLUME 8.8 fl (7.4-10.4); PLATELET 82 x1000/uL (130-400); RED CELL DISTRIBUTION WIDTH 17.7 % (11.6-14.6)
[2018-05-06 05:43] LABS: CHLORIDE 109 mEq/L (98-107)
[2018-05-06 05:57] LABS: PHOSPHORUS 1.7 mg/dL (2.5-4.9)
[2018-05-06] MEDS: METRONIDAZOLE 500 MG PREMIX 100 ML IV SCH ×3 (06:37→21:11)
[2018-05-06 07:30] LABS: PLATELET ESTIMATE DECREASED
[2018-05-06] MEDS: CEFEPIME 1,000 MG in DEXTROSE 5% WATER 50 ML IV SCH ×2 (09:28→22:53)
[2018-05-06] MEDS: CALCITRIOL 1MCG/ML AMP IV SCH (09:28)
[2018-05-06] MEDS ORDERED: CHOLECALCIFEROL (D3) 1000 UNIT TABLET PO SCH (12:30)
[2018-05-06] MEDS ORDERED: POTASSIUM PHOS,M-BASIC-D-BASIC 30 MMOL in SODIUM CHLORIDE 0.9% 500 ML IV SCH (13:00)
[2018-05-06] MEDS ORDERED: KCL 20MEQ/100ML PREMIX 100 ML IV SCH (13:00)
[2018-05-07] VITALS: BP 117/86
[2018-05-07] MEDS: IPRATROPIUM BROMIDE (0.02%) 0.5MG/2.5ML NEB HHN SCH ×6 (00:03→21:25)
[2018-05-07 04:00] VITALS: BP 129/87
[2018-05-07] MEDS: METRONIDAZOLE 500 MG PREMIX 100 ML IV SCH ×3 (04:16→20:14)
[2018-05-07 08:10] VITALS: BP 133/83
[2018-05-07] MEDS ORDERED: MAGNESIUM/ALUMINUM HYDROXIDE/SIMETHICONE 30ML UDC PO PRN (09:15)
[2018-05-07] MEDS: DEXT 5%/0.45% NACL KCL 40MEQ/L 1,000 ML IV SCH (09:45)
[2018-05-07] MEDS: CHOLECALCIFEROL (D3) 1000 UNIT TABLET PO SCH (09:45)
[2018-05-07] MEDS: CEFEPIME 1,000 MG in DEXTROSE 5% WATER 50 ML IV SCH ×2 (10:49→21:47)
[2018-05-07] MEDS ORDERED: POTASSIUM CHLORIDE 20MEQ/PACKET PO NR (11:30)
[2018-05-07 11:42] LABS: CHLORIDE 108 mEq/L (98-107)
[2018-05-07 12:00] VITALS: BP 124/78
[2018-05-07 12:13] LABS: HEMATOCRIT. 30.6 % (42.0-52.0); HEMOGLOBIN. 10.1 g/dL (14.0-18.0); MEAN CORPUSCULAR HEMOGLOBIN 27.9 pg (28.0-32.0); MEAN CORPUSCULAR VOLUME 84.9 fL (80.0-94.0); MEAN PLATELET VOLUME 9.7 fl (7.4-10.4); PLATELET 78 x1000/uL (130-400); RED BLOOD CELL COUNT 3.61 mill/uL (4.7-6.1); RED CELL DISTRIBUTION WIDTH 18.4 % (11.6-14.6)
[2018-05-07 13:26] LABS: PLATELET ESTIMATE DECREASED
[2018-05-07 16:00] VITALS: BP 128/83
[2018-05-07 20:00] VITALS: BP 135/86
[2018-05-08] VITALS: BP 143/83
[2018-05-08] MEDS: IPRATROPIUM BROMIDE (0.02%) 0.5MG/2.5ML NEB HHN SCH ×3 (01:03→08:09)
[2018-05-08] MEDS: MORPHINE SULFATE 4 MG/ML CPJ (NOT FOR IM USE) IV PRN (02:22)
[2018-05-08 04:00] VITALS: BP 132/78
[2018-05-08] MEDS: DEXT 5%/0.45% NACL KCL 40MEQ/L 1,000 ML IV SCH (05:08)
[2018-05-08] MEDS: METRONIDAZOLE 500 MG PREMIX 100 ML IV SCH ×3 (05:08→20:06)
[2018-05-08 06:55] LABS: HEMATOCRIT. 25.4 % (42.0-52.0); HEMOGLOBIN. 8.5 g/dL (14.0-18.0); MEAN CORPUSCULAR HEMOGLOBIN 27.9 pg (28.0-32.0); MEAN CORPUSCULAR VOLUME 82.8 fL (80.0-94.0); MEAN PLATELET VOLUME 10.2 fl (7.4-10.4); PLATELET 83 x1000/uL (130-400); RED BLOOD CELL COUNT 3.07 mill/uL (4.7-6.1); RED CELL DISTRIBUTION WIDTH 17.9 % (11.6-14.6)
[2018-05-08 08:00] VITALS: BP 120/79
[2018-05-08] MEDS: CHOLECALCIFEROL (D3) 1000 UNIT TABLET PO SCH (08:55)
[2018-05-08] MEDS: CEFEPIME 1,000 MG in DEXTROSE 5% WATER 50 ML IV SCH ×2 (09:43→20:06)
[2018-05-08 12:00] VITALS: BP 123/80
[2018-05-08 12:59] LABS: CHLORIDE 109 mEq/L (98-107)
[2018-05-08 13:17] LABS: LDL CHOLESTEROL 29 mg/dL (5-100); PHOSPHORUS 2.8 mg/dL (2.5-4.9)
[2018-05-08 13:19] LABS: HDL CHOLESTEROL 16 mg/dL (40-59)
[2018-05-08] MEDS: HYDROCODONE/ACETAMINOPHEN 5/325MG TABLET PO PRN (13:59)
[2018-05-08] MEDS ORDERED: IPRATROPIUM BROMIDE (0.02%) 0.5MG/2.5ML NEB HHN PRN (14:30)
[2018-05-08 16:00] VITALS: BP 127/78
[2018-05-08 17:51] LABS: PLATELET ESTIMATE DECREASED
[2018-05-08 20:00] VITALS: BP 122/84
[2018-05-08] MEDS: FAMOTIDINE 20MG TABLET PO SCH (20:56)
[2018-05-09 00:36] VITALS: BP 128/86
[2018-05-09] MEDS: DEXT 5%/0.45% NACL KCL 40MEQ/L 1,000 ML IV SCH (00:37)
[2018-05-09] MEDS ORDERED: MORPHINE SULFATE 4 MG/ML CPJ (NOT FOR IM USE) IV PRN (00:45)
[2018-05-09 04:00] VITALS: BP 124/81
[2018-05-09] MEDS: METRONIDAZOLE 500 MG PREMIX 100 ML IV SCH ×2 (04:36→13:21)
[2018-05-09 08:00] VITALS: BP 123/78
[2018-05-09] MEDS: FAMOTIDINE 20MG TABLET PO SCH (09:19)
[2018-05-09] MEDS: CHOLECALCIFEROL (D3) 1000 UNIT TABLET PO SCH (09:19)
[2018-05-09] MEDS: CEFEPIME 1,000 MG in DEXTROSE 5% WATER 50 ML IV SCH (10:08)
[2018-05-09 12:00] VITALS: BP 129/71
[2018-05-09 16:00] VITALS: BP 149/76
[2018-05-09 16:39] LABS: HEMATOCRIT. 28.2 % (42.0-52.0); HEMOGLOBIN. 9.1 g/dL (14.0-18.0); MEAN CORPUSCULAR HEMOGLOBIN 27.2 pg (28.0-32.0); MEAN CORPUSCULAR VOLUME 83.8 fL (80.0-94.0); MEAN PLATELET VOLUME 11.2 fl (7.4-10.4); PLATELET 142 x1000/uL (130-400); RED BLOOD CELL COUNT 3.36 mill/uL (4.7-6.1); RED CELL DISTRIBUTION WIDTH 17.7 % (11.6-14.6)
[2018-05-09] MEDS: HYDROCODONE/ACETAMINOPHEN 5/325MG TABLET PO PRN (16:52)
[2018-05-09 16:57] LABS: CHLORIDE 105 mEq/L (98-107)
[2018-05-09 17:03] LABS: PHOSPHORUS 3.1 mg/dL (2.5-4.9)
[2018-05-09 17:54] LABS: PLATELET ESTIMATE NORMAL
== END 2018-05-09 20:00 | DRG 853 ==
LOC: OR 05:37 → CVICU 17:15 → 7WST 05-06 22:01
PROVIDERS: ADMIT Internal Medicine; ATTEND Internal Medicine
PROC: 0DBM0ZZ Excision of Descending Colon, Open Approach (ICD-10-PCS; principal; 2018-05-02)
PROC: 0DTF0ZZ Resection of Right Large Intestine, Open Approach (ICD-10-PCS; 2018-05-02)
PROC: 30233N1 Transfusion of Nonautologous Red Blood Cells into Peripheral Vein, Percutaneous Approach (ICD-10-PCS; 2018-05-02)
PROC: 0DNW0ZZ Release Peritoneum, Open Approach (ICD-10-PCS; 2018-05-02)
PROC: 5A12012 Performance of Cardiac Output, Single, Manual (ICD-10-PCS; 2018-05-03)
PROC: 05HY33Z Insertion of Infusion Device into Upper Vein, Percutaneous Approach (ICD-10-PCS; 2018-05-03)
PROC: B54NZZA Ultrasonography of Left Upper Extremity Veins, Guidance (ICD-10-PCS; 2018-05-03)
DX: A41.9 Sepsis, unspecified organism (principal); E43 Unspecified severe protein-calorie malnutrition; J96.02 Acute respiratory failure with hypercapnia; I21.4 Non-ST elevation (NSTEMI) myocardial infarction; K72.00 Acute and subacute hepatic failure without coma; J18.9 Pneumonia, unspecified organism; J96.01 Acute respiratory failure with hypoxia; I46.9 Cardiac arrest, cause unspecified; C20 Malignant neoplasm of rectum; D68.9 Coagulation defect, unspecified; J81.1 Chronic pulmonary edema; I42.9 Cardiomyopathy, unspecified; J44.0 Chronic obstructive pulmonary disease with (acute) lower respiratory infection; K56.609 Unspecified intestinal obstruction, unspecified as to partial versus complete obstruction; K59.39 Other megacolon; D63.8 Anemia in other chronic diseases classified elsewhere; E87.3 Alkalosis; E83.51 Hypocalcemia; D69.6 Thrombocytopenia, unspecified; E78.5 Hyperlipidemia, unspecified; E87.6 Hypokalemia; E83.42 Hypomagnesemia; R26.9 Unspecified abnormalities of gait and mobility; K21.9 Gastro-esophageal reflux disease without esophagitis; E78.00 Pure hypercholesterolemia, unspecified; K66.0 Peritoneal adhesions (postprocedural) (postinfection); E83.39 Other disorders of phosphorus metabolism; E87.5 Hyperkalemia; I10 Essential (primary) hypertension; Z43.3 Encounter for attention to colostomy; Z78.1 Physical restraint status; Z82.49 Family history of ischemic heart disease and other diseases of the circulatory system; Z87.891 Personal history of nicotine dependence; Z92.21 Personal history of antineoplastic chemotherapy; Z92.3 Personal history of irradiation; Z68.22 Body mass index [BMI] 22.0-22.9, adult
CPT/HCPCS: 36415; 36569; 36600; 71045; 76937; 78580; 80048; 80061; 80305; 82040; 82306; 82330; 82340; 82375; 82550; 82553; 82805; 82962; 83540; 83550; 83735; 83935; 83970; 84100; 84132; 84133; 84443; 84478; 84484; 85027; 85044; 86850; 86900; 86920; 87070; 88304; 88309; 88329; 93005; 93306; 94002; 94003; 94640; 97162; 97166; 97530; 97535; A6261; C1725; J0330; J0610; J0636; J0692; J1250; J1265; J1956; J2250; J2270; J2370; J2704; J3010; J3370; J3475; J3480; J3490; J7040; J7050; J7060; J7070; J7620; P9016; P9041; P9047

== ENCOUNTER 2018-05-16 13:20 | Inpatient (IN) | payer MEDICARE, MEDICAID ==
[~2018-05-16] VITALS: Ht 180.3 cm; Wt 64.0 kg
[~2018-05-16 13:20] MED LIST changes: +CHOL200059 PO; -HYDR25TA PO; -LOSA50TA20 MT; -PANT40TA4 PO
[2018-05-16] MEDS ORDERED: NEBIVOLOL HCL 5 MG TABLET PO NR (15:00)
[2018-05-16] MEDS ORDERED: POTASSIUM CHLORIDE 20MEQ/PACKET PO NR (15:00)
[2018-05-16] MEDS: CLOPIDOGREL 75MG TABLET PO SCH (15:11)
[2018-05-16 16:00] VITALS: BP_SYST 125; BP_SYST 126; BP_DIAS 73; BP_DIAS 78
[2018-05-16] MEDS ORDERED: MAGNESIUM CITRATE 300ML SOLUTION PO NR (17:00)
[2018-05-16 18:42] LABS: HEMATOCRIT 23.9 % (42.0-52.0); HEMOGLOBIN 7.7 g/dL (14.0-18.0)
[2018-05-16 18:43] LABS: INR 1.1; PROTHROMBIN TIME 11.4 sec (9.1-11.1)
[2018-05-16 20:00] VITALS: BP 116/71
[2018-05-16] MEDS: NEBIVOLOL HCL 5 MG TABLET PO SCH (21:37)
[2018-05-17] VITALS (10 sets, daily range): BP systolic 101–128; BP diastolic 58–74
[2018-05-17 07:19] LABS: HEMATOCRIT. 21.9 % (42.0-52.0); HEMOGLOBIN. 7.1 g/dL (14.0-18.0); MEAN CORPUSCULAR HEMOGLOBIN 26.5 pg (28.0-32.0); PLATELET 729 x1000/uL (130-400); RED BLOOD CELL COUNT 2.68 mill/uL (4.7-6.1); RED CELL DISTRIBUTION WIDTH 17.6 % (11.6-14.6)
[2018-05-17 08:13] LABS: CREATINE KINASE MB FRACTION 1.2 ng/mL (0.5-3.6)
[2018-05-17] MEDS: NEBIVOLOL HCL 5 MG TABLET PO SCH ×2 (09:00→21:00)
[2018-05-17] MEDS: CLOPIDOGREL 75MG TABLET PO SCH (10:05)
[2018-05-17 10:38] LABS: TOTAL IRON BINDING CAPACITY 150 ug/dL (250-450)
[2018-05-17] MEDS ORDERED: CLONIDINE 0.1MG TABLET PO PRN (13:45)
[2018-05-17] MEDS ORDERED: HYDROCODONE/ACETAMINOPHEN 5/325MG TABLET PO PRN (13:45)
[2018-05-17] MEDS ORDERED: ONDANSETRON HCL 4MG/2ML INJ IV PRN (13:45)
[2018-05-17 14:25] LABS: PLATELET ESTIMATE INCREASED
[2018-05-17 16:57] LABS: CHLORIDE 106 mEq/L (98-107)
[2018-05-17] MEDS ORDERED: PIPERACILLIN/TAZ 3.375G PREMIX 50 ML IV NR (18:00)
[2018-05-17] MEDS ORDERED: PIPERACILLIN/TAZOBACTAM 3.375 G in DEXT 5% WATER 100 ML IV NR (18:00)
[2018-05-18] VITALS: BP 99/59
[2018-05-18] MEDS: PIPERACILLIN/TAZ 3.375G PREMIX 50 ML IV SCH ×4 (01:02→18:21)
[2018-05-18] MEDS: HYDROMORPHONE HCL/PF 2MG/ML CPJ IV PRN ×2 (01:09→21:34)
[2018-05-18 04:00] VITALS: BP 99/57
[2018-05-18 08:00] VITALS: BP 94/54
[2018-05-18] MEDS: NEBIVOLOL HCL 5 MG TABLET PO SCH ×2 (09:00→21:00)
[2018-05-18 09:37] LABS: HEMATOCRIT. 31.7 % (42.0-52.0); HEMOGLOBIN. 10.5 g/dL (14.0-18.0); MEAN CORPUSCULAR HEMOGLOBIN 27.7 pg (28.0-32.0); MEAN CORPUSCULAR VOLUME 83.5 fL (80.0-94.0); MEAN PLATELET VOLUME 8.8 fl (7.4-10.4); PLATELET 662 x1000/uL (130-400); RED BLOOD CELL COUNT 3.79 mill/uL (4.7-6.1); RED CELL DISTRIBUTION WIDTH 16.8 % (11.6-14.6)
[2018-05-18 09:40] LABS: CHLORIDE 108 mEq/L (98-107)
[2018-05-18] MEDS: CLOPIDOGREL 75MG TABLET PO SCH (09:56)
[2018-05-18 12:00] VITALS: BP 100/63
[2018-05-18 14:15] LABS: PLATELET ESTIMATE INCREASED
[2018-05-18 16:00] VITALS: BP 117/73
[2018-05-18] MEDS ORDERED: DIATR MEGLU/DIATRIZOATE SOLN 30ML PO SCH (16:30)
[2018-05-18 20:00] VITALS: BP 107/66
[2018-05-19] VITALS: BP 103/65
[2018-05-19] MEDS: PIPERACILLIN/TAZ 3.375G PREMIX 50 ML IV SCH ×4 (01:48→18:27)
[2018-05-19 04:00] VITALS: BP 112/75
[2018-05-19 07:20] LABS: HEMATOCRIT. 29.2 % (42.0-52.0); HEMOGLOBIN. 9.5 g/dL (14.0-18.0); MEAN CORPUSCULAR HEMOGLOBIN 27.1 pg (28.0-32.0); MEAN CORPUSCULAR VOLUME 83.3 fL (80.0-94.0); MEAN PLATELET VOLUME 8.7 fl (7.4-10.4); PLATELET 629 x1000/uL (130-400); RED CELL DISTRIBUTION WIDTH 17.1 % (11.6-14.6)
[2018-05-19 07:59] LABS: CHLORIDE 108 mEq/L (98-107)
[2018-05-19 08:00] VITALS: BP 119/73
[2018-05-19] MEDS ORDERED: DIATR MEGLU/DIATRIZOATE SOLN 30ML PO SCH (08:30)
[2018-05-19] MEDS: NEBIVOLOL HCL 5 MG TABLET PO SCH (09:00)
[2018-05-19 12:00] VITALS: BP 120/80
[2018-05-19 16:00] VITALS: BP 113/74
[2018-05-19] MEDS ORDERED: IOHEXOL-300 100 ML BOTTLE ONE (16:23)
[2018-05-19] MEDS: HYDROMORPHONE HCL/PF 2MG/ML CPJ IV PRN (18:36)
[2018-05-19 20:00] VITALS: BP 114/76
[2018-05-19] MEDS ORDERED: POTASSIUM CHLORIDE 20MEQ TABLET SR PO NR (20:15)
[2018-05-19] MEDS: METOPROLOL TARTRATE 25MG TABLET PO SCH (22:31)
[2018-05-20] VITALS: BP 118/68
[2018-05-20] MEDS: PIPERACILLIN/TAZ 3.375G PREMIX 50 ML IV SCH ×4 (00:34→17:21)
[2018-05-20] MEDS: HYDROMORPHONE HCL/PF 2MG/ML CPJ IV PRN ×3 (03:34→20:38)
[2018-05-20 04:00] VITALS: BP 106/71
[2018-05-20 08:00] VITALS: BP 108/69
[2018-05-20] MEDS: METOPROLOL TARTRATE 25MG TABLET PO SCH ×2 (08:19→20:33)
[2018-05-20 10:20] LABS: PLATELET ESTIMATE INCREASED
[2018-05-20 12:00] VITALS: BP 110/77
[2018-05-20 15:51] LABS: HEMOGLOBIN. 10.5 g/dL (14.0-18.0); MEAN CORPUSCULAR HEMOGLOBIN 26.9 pg (28.0-32.0); MEAN CORPUSCULAR VOLUME 84.4 fL (80.0-94.0); MEAN PLATELET VOLUME 8.5 fl (7.4-10.4); PLATELET 688 x1000/uL (130-400); RED BLOOD CELL COUNT 3.92 mill/uL (4.7-6.1); RED CELL DISTRIBUTION WIDTH 17.2 % (11.6-14.6)
[2018-05-20 15:52] LABS: CHLORIDE 107 mEq/L (98-107)
[2018-05-20 16:00] VITALS: BP 109/71
[2018-05-20 18:09] LABS: PLATELET ESTIMATE INCREASED
[2018-05-20 20:00] VITALS: BP 118/75
[2018-05-20] MEDS ORDERED: POTASSIUM CHLORIDE 20MEQ TABLET SR PO NR (21:00)
[2018-05-21] VITALS: BP 115/73
[2018-05-21] MEDS: PIPERACILLIN/TAZ 3.375G PREMIX 50 ML IV SCH ×4 (00:45→17:02)
[2018-05-21] MEDS: HYDROMORPHONE HCL/PF 2MG/ML CPJ IV PRN ×4 (00:52→21:32)
[2018-05-21 07:02] LABS: CHLORIDE 108 mEq/L (98-107)
[2018-05-21 07:11] LABS: HEMATOCRIT. 30.4 % (42.0-52.0); HEMOGLOBIN. 9.9 g/dL (14.0-18.0); MEAN CORPUSCULAR HEMOGLOBIN 27.2 pg (28.0-32.0); MEAN CORPUSCULAR VOLUME 83.8 fL (80.0-94.0); MEAN PLATELET VOLUME 8.5 fl (7.4-10.4); PLATELET 645 x1000/uL (130-400); RED BLOOD CELL COUNT 3.63 mill/uL (4.7-6.1)
[2018-05-21 08:00] VITALS: BP 102/72
[2018-05-21] MEDS: METOPROLOL TARTRATE 25MG TABLET PO SCH (08:36)
[2018-05-21 12:00] VITALS: BP 111/78
[2018-05-21] MEDS: NEBIVOLOL HCL 5 MG TABLET PO SCH ×2 (15:00→20:59)
[2018-05-21 16:00] VITALS: BP 105/76
[2018-05-21 16:28] LABS: PLATELET ESTIMATE INCREASED
[2018-05-21 20:00] VITALS: BP 112/67
[2018-05-22] VITALS: BP 110/73
[2018-05-22] MEDS: PIPERACILLIN/TAZ 3.375G PREMIX 50 ML IV SCH ×5 (00:05→23:24)
[2018-05-22 04:00] VITALS: BP 117/66
[2018-05-22 06:41] LABS: CHLORIDE 106 mEq/L (98-107)
[2018-05-22 08:00] VITALS: BP 117/74
[2018-05-22] MEDS: NEBIVOLOL HCL 5 MG TABLET PO SCH ×2 (08:54→20:34)
[2018-05-22] MEDS: HYDROMORPHONE HCL/PF 2MG/ML CPJ IV PRN (08:55)
[2018-05-22 12:00] VITALS: BP 110/76
[2018-05-22] MEDS ORDERED: POTASSIUM CHLORIDE 20MEQ TABLET SR PO NR (14:00)
[2018-05-22] MEDS: HYDROMORPHONE HCL 2MG TABLET PO PRN ×2 (14:42→21:43)
[2018-05-22 16:00] VITALS: BP 103/65
[2018-05-22 20:00] VITALS: BP 96/68
[2018-05-23] VITALS (7 sets, daily range): BP systolic 107–122; BP diastolic 66–79
[2018-05-23] MEDS: PIPERACILLIN/TAZ 3.375G PREMIX 50 ML IV SCH ×2 (05:24→12:12)
[2018-05-23] MEDS: HYDROMORPHONE HCL 2MG TABLET PO PRN (06:12)
[2018-05-23 07:06] LABS: CHLORIDE 102 mEq/L (98-107)
[2018-05-23 07:17] LABS: HEMATOCRIT. 31.4 % (42.0-52.0); HEMOGLOBIN. 10.3 g/dL (14.0-18.0); MEAN CORPUSCULAR HEMOGLOBIN 27.3 pg (28.0-32.0); MEAN CORPUSCULAR VOLUME 83.2 fL (80.0-94.0); MEAN PLATELET VOLUME 8.5 fl (7.4-10.4); PLATELET 592 x1000/uL (130-400); RED BLOOD CELL COUNT 3.77 mill/uL (4.7-6.1); RED CELL DISTRIBUTION WIDTH 16.8 % (11.6-14.6)
[2018-05-23] MEDS: NEBIVOLOL HCL 5 MG TABLET PO SCH (11:06)
[2018-05-23] MEDS ORDERED: POTASSIUM CHLORIDE 20MEQ/PACKET PO NR (12:15)
[2018-05-23] MEDS ORDERED: PANTOPRAZOLE 40MG DR TABLET PO SCH (12:15)
[2018-05-23 13:14] LABS: PLATELET ESTIMATE INCREASED
[2018-05-23] MEDS ORDERED: AMOXICILLIN/POTASSIUM CLAVULANATE 500/125MG TAB PO SCH ×2 (14:00→17:00)
[2018-05-23] MEDS ORDERED: SULFAMETHOXAZOLE/TRIMETHOPRIM 400/80MG TAB PO SCH (21:00)
== END 2018-05-23 20:02 | DRG 871 ==
LOC: 5WST 13:20
PROVIDERS: ADMIT Internal Medicine; ATTEND Internal Medicine
PROC: 30233N1 Transfusion of Nonautologous Red Blood Cells into Peripheral Vein, Percutaneous Approach (ICD-10-PCS; principal; 2018-05-17)
DX: A41.9 Sepsis, unspecified organism (principal); I21.4 Non-ST elevation (NSTEMI) myocardial infarction; J18.9 Pneumonia, unspecified organism; E43 Unspecified severe protein-calorie malnutrition; I42.9 Cardiomyopathy, unspecified; I96 Gangrene, not elsewhere classified; J44.0 Chronic obstructive pulmonary disease with (acute) lower respiratory infection; K56.609 Unspecified intestinal obstruction, unspecified as to partial versus complete obstruction; Z68.1 Body mass index [BMI] 19.9 or less, adult; I10 Essential (primary) hypertension; E78.5 Hyperlipidemia, unspecified; E87.6 Hypokalemia; R13.10 Dysphagia, unspecified; K21.9 Gastro-esophageal reflux disease without esophagitis; D63.8 Anemia in other chronic diseases classified elsewhere; D69.6 Thrombocytopenia, unspecified; K52.9 Noninfective gastroenteritis and colitis, unspecified; R33.9 Retention of urine, unspecified; R26.9 Unspecified abnormalities of gait and mobility; E78.00 Pure hypercholesterolemia, unspecified; I25.2 Old myocardial infarction; Z85.048 Personal history of other malignant neoplasm of rectum, rectosigmoid junction, and anus; Z87.891 Personal history of nicotine dependence; Z92.21 Personal history of antineoplastic chemotherapy; Z92.3 Personal history of irradiation; Z93.3 Colostomy status
CPT/HCPCS: 36415; 74177; 80048; 82270; 82550; 82553; 83540; 83550; 83735; 83880; 84443; 84484; 85007; 85014; 85018; 85027; 85049; 85384; 86870; 86900; 86920; 92610; 93005; 97110; 97116; 97162; 97166; 97530; 97535; J1170; J2543; J7040; J7050; J7060; P9016; P9021; Q9963; Q9967